=== PATIENT | male | born 1950 | race Caucasian/White ===

== ENCOUNTER 2018-09-26 12:48 | Day surgery (SDC) | payer MEDICARE ==
[~2018-09-26 12:48] MED LIST: Buffered Lidocaine 1% SYRIN* 1 ML/SYRINGE INTRADERM ONE; Famotidine IV* 10 MG/ML 2 ML (20 mg) IV ONE; Lactated Ringers 1000 ML Bag* 1,000 ML IV SCH; Metoclopramide IV* 5 MG/ML 2 ML VIAL IV SLOW PU ONE; Midazolam* 1 MG/ML 2 ML VIAL (2 MG) ONE; Propofol* 10 MG/ML 20 ML BTL ONE; fentaNYL* 50 MCG/ML 2 ML VIAL (100 MCG VIAL) ONE
[2018-09-26] MEDS ORDERED: Lidocain 1% EPI 1:100,000 * 30 ML MDV ONE (13:55)
[2018-09-26] MEDS ORDERED: ceFAZolin 2 GM PREMIX in ORs 2 GM/50 ML BAG IVPB ONE (13:58)
[2018-09-26] MEDS ORDERED: Metoclopramide IV* 5 MG/ML 2 ML VIAL ONE (13:58)
[2018-09-26] MEDS ORDERED: Famotidine IV* 10 MG/ML 2 ML (20 mg) ONE (13:58)
[2018-09-26] MEDS ORDERED: ceFAZolin 1 GM ADVAN(*) 1 GM ADDV.VIAL IVPB ONE (13:58)
[2018-09-26] MEDS ORDERED: oxyCODONE/Acetamin 5/325 MG* TAB PO PRN (15:01)
[2018-09-26] MEDS ORDERED: Acetaminophen TAB* 325 MG PO PRN (15:01)
[2018-09-26] MEDS ORDERED: Naloxone* 0.4 MG/ML 1 ML VIAL IV PRN (15:01)
[2018-09-26] MEDS ORDERED: fentaNYL* 50 MCG/ML 2 ML VIAL (100 MCG VIAL) IV PRN (15:01)
[2018-09-26] MEDS ORDERED: Ibuprofen TAB* 600 MG PO PRN (15:01)
[2018-09-26] MEDS ORDERED: Ondansetron INJ* 2 MG/ML VIAL IV PRN (15:01)
[2018-09-26] MEDS ORDERED: Mineral Oil Sterile, TOPICAL* 25 ML BTL ONE (16:12)
[2018-09-26] MEDS ORDERED: Propofol* 10 MG/ML 20 ML BTL ONE ×2 (16:25→16:52)
[2018-09-26 18:52] VITALS: BP 126/86
== END 2018-09-26 18:30 | disposition home or self-care (01) ==
LOC: OR 12:48
PROVIDERS: ATTEND Plastic Surgery
DX: C44.311 Basal cell carcinoma of skin of nose (principal); Z85.820 Personal history of malignant melanoma of skin; Z85.828 Personal history of other malignant neoplasm of skin; E11.40 Type 2 diabetes mellitus with diabetic neuropathy, unspecified; Z79.84 Long term (current) use of oral hypoglycemic drugs; E78.5 Hyperlipidemia, unspecified; G47.33 Obstructive sleep apnea (adult) (pediatric)
CPT/HCPCS: 88305; 88331; 88332; A9270-GY; J0690; J2250; J2704; J2765; J3010